=== PATIENT | female | born 1970 | race Caucasian/White ===

== ENCOUNTER 2023-05-02 19:42 | Emergency (ER) | payer BC ==
[~2023-05-02] VITALS: Ht 154.9 cm; Wt 98.4 kg
[~2023-05-02 19:42] MED LIST: SULF400T11
[2023-05-02 19:54] VITALS: BP 99/78; PULSE 91; RESP 18; O2SAT 96
[2023-05-02 21:10] LABS: Basophils # (auto) 0.1 10 ^3/uL (0-0.2); Basophils % (auto) 0.6 % (0.0-2.0); Eosinophils # (auto) 0.2 10 ^3/uL (0-0.8); Eosinophils % (auto) 1.7 % (0.0-7.0); Hematocrit 38.8 % (36.0-46.0); Lymphocytes # (auto) 4.7 10 ^3/uL (0.4-5.4); Lymphocytes % (auto) 35.5 % (10.0-50.0); Mean Corpuscular Hemoglobin 29.8 pg (28.0-32.0); Mean Corpuscular Hgb Conc. 33.6 g/dL (32.0-36.0); Mean Corpuscular Volume 88.8 fL (80.0-100.0); Monocytes # (auto) 0.9 10 ^3/uL (0-1.3); Neutrophils # (auto) 7.3 10 ^3/uL (1.6-8.6); Neutrophils % (auto) 55.2 % (37.0-80.0); Nucleated Red Blood Cells % 0.1 %; Red Blood Cells 4.37 10^6/uL (4.0-5.20); White Blood Cell 13.2 10^3/uL (4.4-10.8)
[2023-05-02 21:28] LABS: Alanine Aminotransferase 21 U/L (7-40); Albumin 4.6 g/dL (3.2-4.8); Alkaline Phosphatase 63 U/L (46-116); Anion Gap 6 (5-15); Aspartate Aminotransferase 18 U/L (13-40); BUN/Creatinine Ratio 20.5 (10.0-20.0); Blood Urea Nitrogen 23 mg/dL (9-23); Calcium 9.8 mg/dL (8.7-10.4); Carbon Dioxide 31 mmol/L (20-30); Chloride 101 mmol/L (98-107); Glucose 133 mg/dL (74-106); Potassium 3.8 mmol/L (3.5-5.1); Sodium 138 mmol/L (136-145)
[2023-05-02 21:29] LABS: Bilirubin, Total 0.5 mg/dL (0.2-1.0); Total Protein 7.1 g/dL (5.7-8.2)
[2023-05-02] MEDS ORDERED: TRAM50TA2 PO (22:17)
[2023-05-03] MEDS ORDERED: ONDANSETRON ODT 4 MG TAB ONE (17:46)
[2023-05-03] MEDS ORDERED: MORPHINE SULFATE 4 MG/ML SYR/VIAL ONE (17:46)
== END 2023-05-02 23:20 | disposition home or self-care (01) ==
LOC: ER 19:42
DX: M79.605 Pain in left leg (principal); Z98.890 Other specified postprocedural states; Z88.8 Allergy status to other drugs, medicaments and biological substances; Z79.899 Other long term (current) drug therapy
CPT/HCPCS: 36415; 80053; 85025; 93971

== ENCOUNTER 2024-10-03 18:01 | Emergency (ER) | payer BC ==
[~2024-10-03] VITALS: Ht 154.9 cm; Wt 84.8 kg
[~2024-10-03 18:01] MED LIST changes: +TRAM50TA2 PO
--- NOTE | 2024-10-03 18:15 | ED.PDOC ---
Musculoskeletal HPI Comments 54-year-old female with a history of left lower extremity DVT brought in by family for evaluation of left lower extremity pain, and swelling for the last 2 days, associated with a headache. Patient states she had similar symptoms with prior DVT. Patient also notes that when she was seen here for evaluation of possible DVT in the past, the initial ultrasound was negative. The DVT was diagnosed on repeat ultrasound later. Patient states she is no longer on Eliquis due to resolution of her prior DVT. She denies any chest pain, shortness of breath, fever, dizziness or other symptoms. Chief Complaint: Left lower extremity pain Time Seen by MD: 18:03 Reviewed Notes: Nurses Notes Allergies: Coded Allergies: Penicillins (Verified Allergy, Unknown, 04/17/10) Home Meds Active Scripts Clindamycin Hcl (Clindamycin Hcl) 300 Mg Cap, 300 MG PO QID for 10 Days, #40 CAP Prov:EDUARDO MUNIZ MD 10/03/24 Ibuprofen Micronized (Ibuprofen) 800 Mg Tab, 800 MG PO Q8HP PRN, #30 TAB prn pain, take with food Prov:EDUARDO MUNIZ MD 10/03/24 Tramadol Hcl (Tramadol Hcl) 50 Mg Tab, 50 MG PO Q8HP PRN for 5 Days, #15 TAB Prov:WALE RAE MD 05/02/23 Reported Medications Sulfamethoxazole-Trimethoprim (Bactrim) 1 Tab Tab 04/17/10 Information Source: Patient, Relative (Child) Mode of Arrival: Ambulatory Location: Left Extremity Location: Leg Past Medical History Past Medical History (Other): Left Lower extremity DVT, tachycardia Surgical History: SOL[employer] 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 Moist mucous membranes.) Neck: Full Range of Motion, Normal Inspection Respiratory: Lungs Clear, No Accessory Muscle Use, No Respiratory Distress, Normal Breath Sounds Cardiovascular: No JVD, Regular Rate/Rhythm Breast Exam: Deferred Gastrointestinal: Non Tender, Soft Genitalia: Deferred Pelvic: Deferred Rectal: Deferred Extremities: Calf tenderness, Normal range of motion, Swelling, Tender, Other (Left calf soft tissue swelling, tenderness and erythema) Neurologic: Alert (Oriented x4), Normal Affect, Normal Mood, Other (Ambulatory) Cerebellar Function: NOT DONE Reflexes: NOT DONE Skin: Dry, Normal Color, Warm Lymphatic: NOT DONE Was a procedure done? Was a procedure done?: No Differential Diagnosis EXT Differential Diagnosis: Cellulitis, Deep Vein Thrombosis, Compartment Syndrome, Strain, Bursitis X-Ray, Labs, Meds, VS Vital Signs Date Time Temp Pulse Resp B/P (MAP) Pulse Ox O2 Delivery O2 Flow Rate FiO2 10/03/24 20:14 80 17 98 Room Air* 0 21 10/03/24 20:14 97.9 78 17 115/66 (82) 96 97.9 10/03/24 18:10 98.0 80 16 127/68 (87) 98 98.0 Lab Test 10/03/24 18:22 Range/Units White Blood Count 12.5 H 4.4-10.8 10^3/uL Red Blood Count 4.75 4.0-5.20 10^6/uL Hemoglobin 14.1 12.2-16.2 g/dL Hematocrit 41.4 36.0-46.0 % Mean Corpuscular Volume 87.1 80.0-100.0 fL Mean Corpuscular Hemoglobin 29.7 28.0-32.0 pg Mean Corpuscular Hemoglobin Concent 34.1 32.0-36.0 g/dL Red Cell Distribution Width 13.0 11.8-14.3 % Platelet Count 294 140-450 10^3/uL Mean Platelet Volume 7.8 6.9-10.8 fL Neutrophils (%) (Auto) 61.0 37.0-80.0 % Lymphocytes (%) (Auto) 29.4 10.0-50.0 % Monocytes (%) (Auto) 7.5 0.0-12.0 % Eosinophils (%) (Auto) 1.3 0.0-7.0 % Basophils (%) (Auto) 0.8 0.0-2.0 % Neutrophils # (Auto) 7.6 1.6-8.6 10 ^3/uL Lymphocytes # (Auto) 3.7 0.4-5.4 10 ^3/uL Monocytes # (Auto) 0.9 0-1.3 10 ^3/uL Eosinophils # (Auto) 0.2 0-0.8 10 ^3/uL Basophils # (Auto) 0.1 0-0.2 10 ^3/uL Nucleated Red Blood Cells 0.1 % Prothrombin Time 11.3 9.3-11.8 sec Prothrombin Time INR 1.07 0.9-1.15 Activated Partial Thromboplast Time 26.2 24.5-34.5 SEC D-Dimer, Quantitative 0.26 0.0-0.49 mg/L FEU Sodium Level 139 136-145 mmol/L Potassium Level 3.4 L 3.5-5.1 mmol/L Chloride Level 102 98-107 mmol/L Carbon Dioxide Level 28 20-31 mmol/L Anion Gap 9 5-15 Blood Urea Nitrogen 17 9-23 mg/dL Creatinine 1.12 H 0.550-1.02 mg/dL Glomerular Filtration Rate Calc 58 >90 mL/min BUN/Creatinine Ratio 15.2 10.0-20.0 Serum Glucose 103 74-106 mg/dL Calcium Level 10.2 8.7-10.4 mg/dL B-Type Natriuretic Peptide 6.21 0-100 pg/mL Current Medications Medications (Trade) Dose Ordered Sig/Mirta Route Start Time Stop Time Status Last Admin Ibuprofen (Motrin Tablet) 800 mg ONCE ONCE PO 10/03/24 19:00 10/03/24 19:01 DC 10/03/24 20:14 Potassium Bicarbonate (Klor-Con/Ef) 50 meq ONCE ONCE PO 10/03/24 20:30 10/03/24 20:31 DC 10/03/24 20:34 X-Ray, Labs, Meds, VS Comment 54-year-old female with a history of tachycardia and prior left lower extremity DVT complaining of left leg/calf pain and swelling for the last 2 days Vitals unremarkable Exam remarkable for left calf soft tissue swelling and tenderness Rhythm strip independently interpreted by me: Sinus rhythm, rate 80 no ectopy. Bilateral lower extremity ultrasound neg for DVT CBC remarkable for wbc 12.5, basic metabolic panel remarkable for potassium 0.4, creatinine 1.12, coag panel and D-dimer unremarkable Patient treated with the following in the ED: Ibuprofen 800 mg p.o., potassium effervescent 50 mEq p.o. On re-evaluation, patient states pain has improved. Vitals were stable. Marlys thomas is ambulatory, and the left lower extremity is neurovascularly intact. Patient appears stable for discharge with close outpatient follow-up with her primary physician. I will prescribe oral antibiotics to cover for possible cellulitis. Rx clindamycin, ibuprofen Time of 1ST Reevaluation: 20:33 Reevaluation 1ST: Improved Patient Education/Counseling: Diagnosis, Treatment, Need For Follow Up Family Education/Counseling: Diagnosis, Treatment, Need For Follow Up Departure 1 Departure Time of Disposition: 20:34 Impression: Primary Impression: Pain of left calf Disposition: 01 HOME / SELF CARE / HOMELESS Condition: Stable Additional Instructions: Your blood tests showed a slightly elevated white blood cell count, which could be due to stress, pain or possibly an early infection. Your potassium was low. We have corrected that in the ER. I have prescribed antibiotics to cover a possible soft tissue infection, as well as pain medication. Follow-up with your primary doctor in 1-2 days. Return to ER for persistent or worsening symptoms. [place] [id number] Ph: [phone] DIAGNOSTIC IMAGING Diagnostic Imaging Report : [id number] Signed PATIENT: RAUL GARCIA ACCT: [id number] UNIT: [id number] : 1970 LOC: ER ROOM / BED: / AGE / SEX: 54 / F ADM STATUS: REG ER SERVICE [id number] ORDERING PHYSICIAN: EDUARDO MUNIZ MD PROCEDURE(s): BLDVT - BiLat Lower DVT REASON: lower extremity edema and calf pain ORDER NUMBER(s): [id number], ACCESSION NUMBER(s): [id number] Bilateral lower extremity venous duplex Clinical History: lower extremity edema and calf pain Comparison: US LT LOWER DVT on DOS: 05/02/23 Technique: Duplex Doppler evaluation of the deep venous systems of both lower extremities from the common femoral veins to the popliteal veins including color Doppler and spectral/pulsed waveform analysis was performed. Findings: RIGHT SIDE: The common femoral vein demonstrates appropriate compressibility and waveform variability. There is compressibility/patency of the great saphenous vein at the proximal thigh. The femoral vein demonstrates appropriate compressibility and waveform variability. The deep femoral vein demonstrates appropriate compressibility and waveform variability. The popliteal vein demonstrates appropriate compressibility and waveform variability. There is normal compressibility at the tibioperoneal trunk. LEFT SIDE: The common femoral vein demonstrates appropriate compressibility and waveform variability. There is compressibility/patency of the great saphenous vein at the proximal thigh. The femoral vein demonstrates appropriate compressibility and waveform variability. The deep femoral vein demonstrates appropriate compressibility and waveform variability. The popliteal vein demonstrates appropriate compressibility and waveform variability. There is normal compressibility at the tibioperoneal trunk. Impression: 1. No right or left femoropopliteal venous thrombosis. e-Prescriptions Clindamycin Hcl (Clindamycin Hcl) 300 Mg Cap 300 MG PO QID for 10 Days, #40 CAP Prov: EDUARDO MUNIZ MD 10/03/24 Ibuprofen Micronized (Ibuprofen) 800 Mg Tab 800 MG PO Q8HP PRN, #30 TAB prn pain, take with food Prov: EDUARDO MUNIZ MD 10/03/24 Discharged With: Spouse Critical Care Note Critical Care Time?: No Stability Stability form required: No Heart Score Heart Score: Heart Score Response (Comments) Value History N/A 0 EKG N/A 0 Age N/A 0 Risk Factors N/A 0 Troponin N/A 0 Total 0 EDUARDO MUNIZ MD October 03, 2024 18:14
[2024-10-03 18:33] LABS: Basophils # (auto) 0.1 10 ^3/uL (0-0.2); Basophils % (auto) 0.8 % (0.0-2.0); Eosinophils # (auto) 0.2 10 ^3/uL (0-0.8); Eosinophils % (auto) 1.3 % (0.0-7.0); Hematocrit 41.4 % (36.0-46.0); Hemoglobin 14.1 g/dL (12.2-16.2); Lymphocytes # (auto) 3.7 10 ^3/uL (0.4-5.4); Lymphocytes % (auto) 29.4 % (10.0-50.0); Mean Corpuscular Hemoglobin 29.7 pg (28.0-32.0); Mean Corpuscular Hgb Conc. 34.1 g/dL (32.0-36.0); Mean Corpuscular Volume 87.1 fL (80.0-100.0); Monocytes # (auto) 0.9 10 ^3/uL (0-1.3); Monocytes % (auto) 7.5 % (0.0-12.0); Neutrophils # (auto) 7.6 10 ^3/uL (1.6-8.6); Nucleated Red Blood Cells % 0.1 %; Platelet Count (auto) 294 10^3/uL (140-450); Red Blood Cells 4.75 10^6/uL (4.0-5.20); White Blood Cell 12.5 10^3/uL (4.4-10.8)
[2024-10-03 18:45] LABS: Chloride 102 mmol/L (98-107); Sodium 139 mmol/L (136-145)
[2024-10-03 18:46] LABS: Anion Gap 9 (5-15); Calcium 10.2 mg/dL (8.7-10.4); Carbon Dioxide 28 mmol/L (20-31)
[2024-10-03 18:48] LABS: INR 1.07 (0.9-1.15); Partial Thromboplastin Time 26.2 SEC (24.5-34.5); Prothrombin Time 11.3 sec (9.3-11.8)
[2024-10-03 18:51] LABS: BUN/Creatinine Ratio 15.2 (10.0-20.0); Blood Urea Nitrogen 17 mg/dL (9-23); Glucose 103 mg/dL (74-106); Potassium 3.4 mmol/L (3.5-5.1)
--- NOTE | 2024-10-03 19:27 | DVH ---
Bilateral lower extremity venous duplex Clinical History: lower extremity edema and calf pain Comparison: US LT LOWER DVT on DOS: 05/02/23 Technique: Duplex Doppler evaluation of the deep venous systems of both lower extremities from the common femora l veins to the popliteal veins including color Doppler and spectral/pulsed waveform analysis was perf ormed. Findings: RIGHT SIDE: The common femoral vein demonstrates appropriate compressibility and waveform variability. There is compressibility/patency of the great saphenous vein at the proximal thigh. The femoral vein demonstrates appropriate compressibility and waveform variability. The deep femoral vein demonstrates appropriate compressibility and waveform variability. The popliteal vein demonstrates appropriate compressibility and waveform variability. There is normal compressibility at the tibioperoneal trunk. LEFT SIDE: The common femoral vein demonstrates appropriate compressibility and waveform variability. There is compressibility/patency of the great saphenous vein at the proximal thigh. The femoral vein demonstrates appropriate compressibility and waveform variability. The deep femoral vein demonstrates appropriate compressibility and waveform variability. The popliteal vein demonstrates appropriate compressibility and waveform variability. There is normal compressibility at the tibioperoneal trunk. Impression: 1. No right or left femoropopliteal venous thrombosis.
[2024-10-03 20:14] VITALS: BP 115/66; PULSE 80; RESP 17; TEMP 97.9; O2SAT 98
[2024-10-03] MEDS: IBUPROFEN 800 MG TAB PO ONE (20:14)
[2024-10-03] MEDS: POTASSIUM EFFERVESENT TAB 25 MEQ PO ONE (20:34)
[2024-10-03] MEDS ORDERED: CLIN1CAP70 PO (20:46)
[2024-10-03] MEDS ORDERED: IBUP-1455 PO (20:46)
== END 2024-10-03 21:04 | disposition home or self-care (01) ==
LOC: ER 18:10
DX: M79.662 Pain in left lower leg (principal); R22.42 Localized swelling, mass and lump, left lower limb; Z86.718 Personal history of other venous thrombosis and embolism; Z79.899 Other long term (current) drug therapy; Z98.890 Other specified postprocedural states; Z88.0 Allergy status to penicillin
CPT/HCPCS: 36415; 80048; 83880; 85025; 85379; 85610; 85730; 93970